=== PATIENT | female | born 1995 | race Caucasian/White ===

== ENCOUNTER 2019-11-01 20:54 | Outpatient (REF) | payer OTHER, SELFPAY ==
[2019-11-01 21:30] LABS: Abs Immature Grans 0.04 k/cumm (0.0-0.09); Absolute Basophil Count 0.01 k/cumm (0.0-0.2); Absolute Eosinophil Count 0.03 k/cumm (0.0-0.7); Absolute Monocyte Count 0.37 k/cumm (0.11-0.7); Absolute Neutrophil Count 9.11 k/cumm (1.2-6.7); Basophils % 0.1; Eosinophils % 0.3; HCT 43.1 % (36.0-46.0); HGB 14.1 g/dL (12.0-15.5); Immature Grans % 0.4; Lymphocytes % 6.8; Mean Corp. HGB Concentration 32.7 g/dL (32.0-36.0); Mean Corpuscular Hemoglobin 27.3 pg (27.0-33.0); Mean Corpuscular Volume 83.4 fL (80-95); Mean Platelet Volume 10.7 fL (8.0-11.0); Monocytes % 3.6; Neutrophils % 88.8; Platelet Count 295 x1000/uL (130-400); RBC 5.17 m/cumm (4.00-5.20); White Blood Cell Count 10.26 k/cumm (4.4-10.8)
[2019-11-01 21:37] LABS: Anion Gap 11.5 mmol/L (3-11); BUN 16 mg/dL (7-18); CO2 23.5 mmol/L (21.0-32.0); CREATININE 0.88 mg/dL (0.55-1.02); Chloride 104 mmol/L (98-107); Glucose 100 mg/dL (74-106); Potassium 4.1 mmol/L (3.5-5.1); Sodium 139 mmol/L (136-145)
== END 2019-11-01 21:14 ==
LOC: NCHCN 20:54
PROVIDERS: PCP Family Medicine; Visit Provider Family Medicine
DX: R19.7 Diarrhea, unspecified (principal)
CPT/HCPCS: 80048; 85025

== ENCOUNTER 2020-06-21 09:26 | Outpatient (REF) | payer OTHER, SELFPAY ==
[2020-06-21 20:40] LABS: HCT 40.7 % (36.0-46.0); HGB 13.5 g/dL (12.0-15.5)
[2020-06-21 21:02] LABS: TSH 0.84 uIU/mL (0.36-3.74)
== END 2020-06-21 09:46 ==
LOC: NCHCN 09:26
PROVIDERS: PCP Family Medicine; Visit Provider Registered Nurse
DX: R53.83 Other fatigue (principal)
CPT/HCPCS: 84443; 85014; 85018

== ENCOUNTER 2024-02-28 20:29 | Outpatient (REF) | payer BC, SELFPAY ==
--- NOTE | 2024-02-28 15:00 | PAPFT_PTH ---
PATIENT: Katiuska Gasca LOC: [id number] U#:[id number] AGE/SX: 29/F ROOM: RE02/28/[address]: Sola Ramirez : 1995 BED: DIS: 02/28/2024 SPEC #: [id number] RECD: 02/29/24 12:53 STATUS: EVI REMarce #: [id number] SURI: 02/28/24 15:[address]: Sola Ramirez DEPT: [facility] Cytology RECD BY: Angela Cedeno Tissues: 1 - CX/ENDOCX FOR PAP SMEARS Procedures: PAP THIN PREP/[facility] Screening HPV DNA PROBE Comments: [id number]
== END 2024-02-28 20:30 | disposition home or self-care (01) ==
LOC: NCHCN 20:29
PROVIDERS: PCP Family Medicine; Visit Provider Family Medicine
DX: Z00.01 Encounter for general adult medical examination with abnormal findings (principal); Z12.4 Encounter for screening for malignant neoplasm of cervix
CPT/HCPCS: 88142; 87624